=== PATIENT | female | born 1980 | race Caucasian/White ===

== ENCOUNTER 2019-08-20 16:48 | Outpatient (CLI) | payer SELFPAY ==
[~2019-08-20] VITALS: Ht 162.6 cm; Wt 102.4 kg
[~2019-08-20 16:48] MED LIST: ACHD5005 PO; DOCU100C37 PO; FERR325T18 PO; IBUP-1773 PO
--- NOTE | 2019-08-20 16:55 | NUR ---
ZOFIA PADRON presented to unit via from ED, accompanied by SMALL CHILD, with c/o CRAMPING, R SIDED PAIN. ZOFIA PADRON weighed, gowned, voided, and to bed. EFHM and TOCO applied, VS taken. ZOFIA PADRON oriented to bed controls, call light, TV, heat, and A/C controls.
--- NOTE | 2019-08-20 17:20 | NUR ---
DR DAVIS NOTIFIED OF PATIENT STATUS, C/O AND INITIAL ASSESSMENT, VITALS. NEW ORDERS RECEIVED.
[2019-08-20 17:22] VITALS: BP 118/83
[2019-08-20] MEDS ORDERED: D5 LR IV SOLUTION 1,000 ML IV ONE (17:25)
[2019-08-20] MEDS ORDERED: D5 LR IV SOLUTION 1,000 ML IV SCH (17:30)
[2019-08-20 17:50] VITALS: BP 107/68
[2019-08-20 18:28] LABS: BASOPHILS % (AUTO) 0 % (0-10); EOSINOPHILS # (AUTO) 0.1 10^3/uL (0.0-0.3); EOSINOPHILS % (AUTO) 1 % (0-10); HEMATOCRIT 31 % (35-52); HEMOGLOBIN 9.7 G/DL (11.5-16.0); LYMPHOCYTES # (AUTO) 1.7 X 10^3 (1.0-4.0); LYMPHOCYTES % (AUTO) 15 % (12-44); MEAN CORPUSCULAR HEMOGLOBIN 27 PG (25-34); MEAN CORPUSCULAR HGB CONC 31 G/DL (32-36); MEAN CORPUSCULAR VOLUME 87 FL (80-99); MEAN PLATELET VOLUME 10.7 FL (7.4-10.4); MONOCYTES # (AUTO) 0.6 X 10^3 (0.0-1.0); MONOCYTES % (AUTO) 6 % (0-12); NEUTROPHILS # (AUTO) 8.7 X 10^3 (1.8-7.8); NEUTROPHILS % (AUTO) 79 % (42-75); PLATELET COUNT 255 10^3/uL (130-400); RED CELL DISTRIBUTION WIDTH 14.1 % (10.0-14.5)
[2019-08-20 18:31] LABS: BILIRUBIN,URINE NEGATIVE (NEGATIVE); CLARITY,URINE CLEAR; COLOR,URINE YELLOW; GLUCOSE, URINE (UA) NEGATIVE (NEGATIVE); KETONES,URINE 1+ (NEGATIVE); LEUKOCYTE ESTERASE ,URINE NEGATIVE (NEGATIVE); NITRITE,URINE NEGATIVE (NEGATIVE); PROTEIN,URINE NEGATIVE (NEGATIVE)
[2019-08-20 18:42] LABS: BACTERIA,URINE NEGATIVE /HPF; RENAL EPITHELIAL CELLS,URINE 0-2 /HPF
[2019-08-20 18:50] LABS: ALANINE AMINOTRANSFERASE 17 U/L (0-55); ALKALINE PHOSPHATASE 143 U/L (40-136); BILIRUBIN,TOTAL 0.2 MG/DL (0.1-1.0); BUN/CREATININE RATIO 9; CALCIUM 8.9 MG/DL (8.5-10.1); CARBON DIOXIDE 22 MMOL/L (21-32); CHLORIDE 105 MMOL/L (98-107); CREATININE SERUM 0.69 MG/DL (0.60-1.30); GFR ESTIMATED > 60; GLUCOSE 130 MG/DL (70-105); POTASSIUM 3.4 MMOL/L (3.6-5.0); SODIUM 136 MMOL/L (135-145); TOTAL PROTEIN 6.4 GM/DL (6.4-8.2)
[2019-08-20 19:15] VITALS: BP 115/74
--- NOTE | 2019-08-20 19:22 | NUR ---
notified of lab results, current vs, low back rating 2/10 from previous 03/17, no ctx noted. Orders for d/c once fluids are completed.
[2019-08-20] MEDS ORDERED: PREN-53 PO (19:28)
--- NOTE | 2019-08-20 19:40 | NUR ---
Discharge packet given and explained, understanding voiced. Urged to keep f/u appt with primary care physician.
--- NOTE | 2019-08-20 19:49 | NUR ---
Pt ambulatory off unit at this time accompanied by s/o and friend. No ss distress noted.
--- NOTE | 2019-08-23 08:15 | Physician Query-Final Dx ---
SANTHOSH FRANCO 08/23/19 0815: Clinic Account Progress/Dx Physician Query: Please give diagnosis Please include # weeks gestation Date of Service Aug 20, 2019 at 16:48 KENTON DAVIS MD 08/24/19 0801: Clinic Account Progress/Dx DIAGNOSIS: Diagnosis False labor at 32 weeks gestation SANTHOSH FRANCO Aug 23, 2019 08:15 KENTON RICO MD Aug 24, 2019 08:01 POS
== END 2019-08-20 19:49 | disposition home or self-care (01) ==
LOC: WSo 16:48 → LDRP 16:50 → WSo 19:49
PROVIDERS: ATTEND Obstetrics & Gynecology
DX: O26.899 Other specified pregnancy related conditions, unspecified trimester (principal); R10.9 Unspecified abdominal pain; Z3A.00 Weeks of gestation of pregnancy not specified
CPT/HCPCS: 36415; 80053; 81000; 82570; 83615; 84156; 84550; 85025

== ENCOUNTER 2019-09-27 05:48 | Outpatient (CLI) | payer SELFPAY ==
[~2019-09-27] VITALS: Ht 162.6 cm; Wt 105.5 kg
[~2019-09-27 05:48] MED LIST changes: +PREN-53 PO
== END 2019-09-27 12:03 | disposition home or self-care (01) ==
LOC: PREOP 05:48
PROVIDERS: ATTEND Obstetrics & Gynecology
DX: Z01.818 Encounter for other preprocedural examination (principal)

== ENCOUNTER 2019-10-04 03:12 | Inpatient (IN) | payer SELFPAY ==
[~2019-10-04] VITALS: Ht 162.6 cm; Wt 105.5 kg
[2019-10-04] VITALS (14 sets, daily range): BP systolic 101–145; BP diastolic 56–82
--- NOTE | 2019-10-04 03:17 | NUR ---
ZOFIA PADRON presented to unit via AMBULATION from ED, accompanied by SO, with c/o CONTRACTIONS, r c/s sched for 1300. ZOFIA PADRON weighed, gowned, voided, and to bed. EFHM and TOCO applied, VS taken. ZOFIA PADRON oriented to bed controls, call light, TV, heat, and A/C controls.
[2019-10-04] MEDS ORDERED: ceFAZolin 2 GM/50 ML NS 50 ML IV ONE (03:30)
[2019-10-04] MEDS ORDERED: TERBUTALINE INJ 1 MG/ML (BRETHINE) AMP ONE (03:34)
[2019-10-04] MEDS ORDERED: LACTATED RINGERS 1,000 ML IV PRN ×2 (03:42)
[2019-10-04] MEDS ORDERED: FAMOTIDINE 20MG/2ML IV (PEPCID) IV ONE (03:45)
[2019-10-04] MEDS ORDERED: TERBUTALINE INJ 1 MG/ML (BRETHINE) AMP SC ONE (03:45)
[2019-10-04] MEDS ORDERED: METOCLOPRAMIDE INJ 10 MG/2 ML (REGLAN) IV ONE (03:45)
[2019-10-04] MEDS ORDERED: CITRIC ACID/SOB CIT (BICITRA) 30 ML UDC PO ONE (03:45)
[2019-10-04] MEDS ORDERED: fentaNYL INJECTION 100 MCG/2 ML AMP ONE (04:16)
[2019-10-04 04:18] LABS: BASOPHILS % (AUTO) 0 % (0-10); EOSINOPHILS # (AUTO) 0.1 10^3/uL (0.0-0.3); EOSINOPHILS % (AUTO) 1 % (0-10); HEMATOCRIT 33 % (35-52); HEMOGLOBIN 10.3 G/DL (11.5-16.0); LYMPHOCYTES # (AUTO) 3.2 X 10^3 (1.0-4.0); LYMPHOCYTES % (AUTO) 35 % (12-44); MEAN CORPUSCULAR HEMOGLOBIN 26 PG (25-34); MEAN CORPUSCULAR HGB CONC 32 G/DL (32-36); MEAN CORPUSCULAR VOLUME 81 FL (80-99); MEAN PLATELET VOLUME 10.9 FL (7.4-10.4); MONOCYTES # (AUTO) 0.7 X 10^3 (0.0-1.0); MONOCYTES % (AUTO) 8 % (0-12); NEUTROPHILS # (AUTO) 5.3 X 10^3 (1.8-7.8); NEUTROPHILS % (AUTO) 57 % (42-75); PLATELET COUNT 265 10^3/uL (130-400); RED CELL DISTRIBUTION WIDTH 15.7 % (10.0-14.5); WHITE BLOOD COUNT 9.2 10^3/uL (4.3-11.0)
[2019-10-04] MEDS ORDERED: KETAMINE/NaCl 50 MG/5 ML SYRINGE (ED ONLY) ONE (04:23)
[2019-10-04] MEDS ORDERED: OXYTOCIN PRE-MIX DRIP 1,000 ML IV ONE (04:24)
--- NOTE | 2019-10-04 04:29 | NUR ---
Called Dr. Suarez to make sure he was on his way as surgery crew is waiting, states will be here in approx 5 min. No new orders rc'd.
--- NOTE | 2019-10-04 04:50 | History & Physical-OB/GYN ---
History of Present Illness History of Present Illness Reason for visit/HPI Ms. Campos was admitted for the onset of contractions at 39 weeks gestation--she was scheduled for a Repeat today. Date of Admission Oct 04, 2019 at 03:12 Date Seen by a Provider: Oct 04, 2019 Time Seen by a Provider: 04:30 I consulted on this patient on 10/04/19 04:44 Attending Physician Joshua Suarez DO Admitting Physician Joshua Suarez DO Consult Allergies and Home Medications Allergies Coded Allergies: No Known Allergies (Verified Allergy, Unknown, 06/13/06) Home Medications No Active Prescriptions or Reported Meds Patient Home Medication List Home Medication List Reviewed: Yes Past Zwyusox-Crsoew-Xfdbdi Hx Patient Social History Marrital Status: Number of Children: 2 Number of living children: 2 Employed/Student: employed Alcohol Use: Denies Use Recreational Drug Use: No Smoking Status: Never a Smoker 2nd Hand Smoke Exposure: No Physical Abuse Screen: No Sexual Abuse: No Recent Foreign Travel: No Contact w/other who traveled: No Recent Hopitalizations: No Recent Infectious Disease Expo: No Immunizations Up To Date Tetanus Booster (TDap): Unknown Pediatric: Yes Seasonal Allergies Seasonal Allergies: No Surgeries Yes Respiratory No Cardiovascular No Neurological No Reproductive System Expected Date of Delivery: Oct 09, 2019 Hx Reproductive Disorders: No Genitourinary No Gastrointestinal No Musculoskeletal No Endocrine History of Endocrine Disorders: No HEENT History of HEENT Disorders: No Cancer No Psychosocial History of Psychiatric Problem: No Integumentary History of Skin or Integumenta: No Blood Transfusions History of Blood Disorders: No Adverse Reaction to a Blood Tr: No Family Medical History Family Hx: Patient reports no known family medical history. Review of Systems Constitutional: see HPI Physical Exam Physical Exam Vital Signs I & O 10/04/19 07:00 Intake Total 1000 ml Balance 1000 ml Capillary Refill : Labs Laboratory Tests 10/04/19 04:05: White Blood Count 9.2, Red Blood Count 4.01L, Hemoglobin 10.3L, Hematocrit 33L, Mean Corpuscular Volume 81, Mean Corpuscular Hemoglobin 26, Mean Corpuscular Hemoglobin Concent 32, Red Cell Distribution Width 15.7H, Platelet Count 265, Mean Platelet Volume 10.9H, Neutrophils (%) (Auto) 57, Lymphocytes (%) (Auto) 35, Monocytes (%) (Auto) 8, Eosinophils (%) (Auto) 1, Basophils (%) (Auto) 0, Neutrophils # (Auto) 5.3, Lymphocytes # (Auto) 3.2, Monocytes # (Auto) 0.7, Eosinophils # (Auto) 0.1, Basophils # (Auto) 0.0 General Appearance: No Apparent Distress, WD/WN Respiratory: Chest Non Tender, Lungs Clear, Normal Breath Sounds Cardiovascular: Regular Rate, Rhythm, No Murmur Abdominal: normal bowel sounds, non tender Pelvic Exam: normal external exam, normal adnexa, no cerv. motion tender Extremity: Normal Inspection, No Calf Tenderness Assessment/Plan Assessment and Plan Intrauterine at 39 2/7 weeks--onset of labor 2. Previous Plan: Proceed with an immediate Repeat . Procedure and its associated risks were reviewed. All questions were answered. Admission Diagnosis Admission Status: Inpatient Order (span 2 midnights) Reason for Inpatient Admission: Intrauterine at 39 2/7 weeks--onset of labor 2. Previous Clinical Quality Measures DVT/VTE Risk/Contraindication: Risk Factor Score Per Nursin RFS Level Per Nursing on Admit: 2=Moderate JOSHUA SUAREZ DO Oct 04, 2019 04:49
[2019-10-04] MEDS ORDERED: KETOROLAC 30 MG/ML VIAL ONE (05:16)
[2019-10-04] MEDS: KETOROLAC 30 MG/ML VIAL IV SCH ×3 (05:20→18:10)
[2019-10-04] MEDS ORDERED: BUPIVACAINE 0.5% 30 ML (SENSORCAINE) VIAL ONE (05:55)
[2019-10-04] MEDS ORDERED: OXYTOCIN PRE-MIX DRIP 500 ML IV SCH (05:57)
[2019-10-04] MEDS ORDERED: CATHETER FLUSH 10 ML SYR IV SCH (06:00)
[2019-10-04] MEDS ORDERED: ONDANSETRON 4 MG/2 ML (SDV) Z0FRAN IVP PRN (06:00)
[2019-10-04] MEDS ORDERED: fentaNYL INJECTION 100 MCG/2 ML AMP IVP PRN (06:00)
[2019-10-04] MEDS ORDERED: TETANUS,DIPTH,PERTUSS P/F (BOOSTRIX) 0.5 ML VIAL IM SCH (06:00)
[2019-10-04] MEDS ORDERED: MEASLES,MUMPS,RUBELLA 1 EA INJ SC SCH (06:00)
--- NOTE | 2019-10-04 06:08 | Cesarean Section Operative ---
Procedure Procedure Note Pre-operative Diagnosis: Coleman chahal (39 /Para / ,Gestational Age (wks)39 with [] Post-operative Diagnosis: Intrauterine at 39 2/7 2. Previous C- Section 3. Advanced Maternal Age Procedure: [Repeat] low transverse section Physician: GÓMEZ CRUZ Palletiser Operator: [None] Estimated blood loss: [500] mL Disposition: [Stable to Recovery Room] Findings: Viable [Male] infant, Apgars [], weight [], intact placenta, 3vc, normal appearing uterus, tubes, and ovaries. Indications:Coleman chahal (39 /Para 3 /2 ,Gestational Age (wks)39 presenting for [onset of labor]. Procedure Details: The patient was seen in pre-op and the procedure was discussed with the patient in full, including the risks, benefits, and alternatives. All questions were a nswered. The patient was taken to the operating room and a time out was performed, verifying patient and procedure. After spinal anesthesia was placed by our anesthesia colleagues, the patient was placed in the dorsal supine with leftward tilt for uterine displacement.~ Her abdomen was then prepped and draped in the typical sterile fashion. An elliptical skin incision was made using a scalpel. previous skin scar was removed and sent to pathology and the incision carried down through the underlying fascia. The fascia was incised in the midline and tented up using Vero clamps. On both the inferior and superior fascia side the rectus muscle was dissected off bluntly and sharply using Strong scissors. The peritoneum was identified and entered bluntly in the midline. This was then stretched laterally using manual strength. After entering the abdominal cavity and confirming lack of intraperitoneal adhesions, a large Randell retractor was placed and the lower uterine segment was visualized. A bladder flap was created with the use of Metzenbaum scissors.~ A scalpel was utilized to make a low transverse uterine incision. Amniotomy was performed with an Allis clamp with return of clear fluid. The 's head was grasped and brought to the level of the incision. Fundal pressure was applied and infant was delivered without difficulty. Mouth and nares were suctioned with bulb suction. After the umbilical cord was clamped and cut, the was handed off to the pediatric staff. A sample of cord blood was then obtained. The placenta was delivered intact via uterine massage. The uterus was exteriorized and cleared of all clots and debris. The uterine incision was closed using 0 Vicryl in a running locked fashion. A second imbricated layer was placed using 0 Vicryl in a running fashion as well. The uterus was flexed forward and the posterior rectouterine space was inspected and cleared of all clots and debris. Again the hysterotomy site was examined and hemostasis was observed. The bilateral tubes and ovaries appeared normal. The uterus was placed back into the abdominal cavity and abdominal gutters were cleared of all clots and debris. A final check of the uterine incision showed it to be hemostatic. The peritoneum was closed using 3-0 Vicryl in a running fashion. The fascia was closed with 0 Vicryl in a running fashion. The subcutaneous space was hemostatic, and irrigated. The subcutaneous space was closed with 3-0 Plain Gu in several single interrupted stitches. The skin was then closed using 4-0 Monocryl in a running subcuticular fashion. The skin edges were reapproximated together and were hemostatic. A pressure dressing was applied. All sponge, lap and needle counts were correct at the end of the procedure per nursing. Vitals - Labs Vital Signs - I&O Vital Signs Date Time Temp Pulse Resp B/P (MAP) Pulse Ox O2 Delivery O2 Flow Rate FiO2 10/04/19 04:33 85 18 123/69 (87) Room Air 10/04/19 03:31 36.7 89 18 100 Room Air I & O 10/04/19 07:00 Intake Total 1050 ml Balance 1050 ml Labs Laboratory Tests 10/04/19 04:05: White Blood Count 9.2, Red Blood Count 4.01L, Hemoglobin 10.3L, Hematocrit 33L, Mean Corpuscular Volume 81, Mean Corpuscular Hemoglobin 26, Mean Corpuscular Hemoglobin Concent 32, Red Cell Distribution Width 15.7H, Platelet Count 265, Mean Platelet Volume 10.9H, Neutrophils (%) (Auto) 57, Lymphocytes (%) (Auto) 35, Monocytes (%) (Auto) 8, Eosinophils (%) (Auto) 1, Basophils (%) (Auto) 0, Neutrophils # (Auto) 5.3, Lymphocytes # (Auto) 3.2, Monocytes # (Auto) 0.7, Eosinophils # (Auto) 0.1, Basophils # (Auto) 0.0 GÓMEZ CRUZ DO Oct 04, 2019 06:08
[2019-10-04] MEDS ORDERED: PHENYLEPHRINE 100 MCG/ML 10 ML (ANESTHESIA) SYR ONE (06:17)
[2019-10-04] MEDS ORDERED: ACETAMINOPHEN 500 MG TAB (TYLENOL) ONE (06:21)
[2019-10-04] MEDS ORDERED: METOCLOPRAMIDE 10 MG (REGLAN) TAB ONE (06:22)
--- NOTE | 2019-10-04 06:50 | NUR ---
Pt. to rm 307 via bed from recovery following r c/s. Oriented to rm, call light given, POC reviewed, pt. verbalized understanding. Report rc'd from Michelle Veronica RN.
[2019-10-04] MEDS ORDERED: OXYTOCIN PRE-MIX DRIP 500 ML IV ONE (06:53)
[2019-10-04] MEDS: METOCLOPRAMIDE 10 MG (REGLAN) TAB PO SCH ×2 (07:01→12:10)
[2019-10-04] MEDS: ACETAMINOPHEN 500 MG TAB (TYLENOL) PO SCH ×3 (07:02→21:57)
[2019-10-04] MEDS: DOCUSATE SODIUM 100 MG (COLACE) CAP PO SCH ×2 (09:24→21:57)
--- NOTE | 2019-10-04 10:57 | NUR ---
Dr. Suarez called, notified of decreased urine output, request for IV fluids after pitocin infusion. Order rec'd for NS 500ml bolus, then 125ml/hr. Beckett catheter order clarified at this time as well, may take out this evening or tomorrow AM.
[2019-10-04] MEDS ORDERED: NS IV 1000 ML 1,000 ML ONE (10:58)
[2019-10-04] MEDS: NS IV 1000 ML 1,000 ML IV SCH ×4 (11:04→23:15)
--- NOTE | 2019-10-04 14:34 | NUR ---
Dr Suarez called d/t continued low output, VM left.
--- NOTE | 2019-10-04 15:23 | NUR ---
Dr Suarez called again as he had not returned first call. notified of continued concentrated, decreased output. Order to increase fluids to 250ml/hr.
--- NOTE | 2019-10-04 18:27 | NUR ---
Dr Suarez called and notified of total output of 175ml for the day. Order rec'd to continue fluids at 250ml/hr and keep nicolas in place until morning for accurate I&O
[2019-10-05] MEDS: KETOROLAC 30 MG/ML VIAL IV SCH
[2019-10-05 00:01] VITALS: BP 120/66
[2019-10-05] MEDS: ACETAMINOPHEN 500 MG TAB (TYLENOL) PO SCH ×2 (03:11→11:59)
[2019-10-05] MEDS: NS IV 1000 ML 1,000 ML IV SCH (03:11)
[2019-10-05] MEDS ORDERED: BISACODYL 10 MG SUPP (DULCOLAX) PR ONE (05:00)
[2019-10-05] MEDS ORDERED: MILK OF MAGNESIA 400 MG/5 ML 30 ML UDC PO ONE (05:00)
[2019-10-05 05:09] VITALS: BP 112/80
[2019-10-05] MEDS: METOCLOPRAMIDE 10 MG (REGLAN) TAB PO SCH (05:09)
[2019-10-05] MEDS ORDERED: ACET-93 PO (06:20)
[2019-10-05] MEDS ORDERED: IBUP-1780 PO (06:20)
[2019-10-05] MEDS ORDERED: DOCU-244 PO (06:20)
[2019-10-05] MEDS ORDERED: OXC5T PO (06:20)
--- NOTE | 2019-10-05 06:28 | Discharge Summary ---
Diagnosis/Chief Complaint Date of Admission Oct 04, 2019 at 03:12 Date of Discharge October 05, 2019 Discharge Date: Oct 05, 2019 Discharge Time: 15:00 Admission Diagnosis Admission Diagnosis Intrauterine at 39 2/7 weeks 2. Previous 3. Advanced Maternal Age Discharge Diagnosis Intrauterine at 39 2/7 weeks--delivered 2. Previous 3. Advanced Maternal Age Reason Hospital Visit Ms. Campos was admitted for the onset of contractions at 39 weeks gestation--she was scheduled for a Repeat today. Discharge Summary Hospital Course Was the Problem List Reviewed?: Yes Hospital Course Ms. Campos, 39 year old female was admitted with the onset of contractions and found to have advanced dilation (4 cm). She was a scheduled for the day of admission. The surgery was performed seemingly without complications. On her day of surgery, she was placed on IV pain medication and other comfort measures. Ms. Campos had decreased urinary output despite increased fluid load. However, over the course of the night, she was without complaint. This morning, she states that she is only a little sore, would like to have her catheter removed. We will remove her catheter, increase her bowel function, start her on oral pain medications, and if her vital signs remain stable, I will discharge her to home with instructions, prescriptions and a follow up appointment. Labs Laboratory Tests 10/04/19 04:05: Red Blood Count 4.01L, Hemoglobin 10.3L, Hematocrit 33L, Red Cell Distribution Width 15.7H, Mean Platelet Volume 10.9H Procedures None. Discharge Physical Examination Allergies: Coded Allergies: No Known Allergies (Verified Allergy, Unknown, 06/13/06) Vitals & I&Os Vital Signs Date Time Temp Pulse Resp B/P (MAP) Pulse Ox O2 Delivery O2 Flow Rate FiO2 10/05/19 05:09 37.0 68 18 112/80 (91) 98 Room Air General Appearance: Alert, Oriented X3, Cooperative HEENT: Atraumatic, PERRLA Respiratory: Clear to Auscultation Cardiovascular: Regular Rate, No Murmurs Abdominal: Normal Bowel Sounds Extremities: No Clubbing, No Cyanosis Skin: No Rashes Neuro: Normal Gait, Normal Speech Psych/Mental Status: Mental Status NL Discharge Home Medications Reviewed and agree with Discharge Medication list on patient's Discharge Instruction sheet Instructions to Patient/Family Please see electronic discharge instructions given to patient. Clinical Quality Measures DVT/VTE Risk/Contraindication: Risk Factor Score Per Nursin RFS Level Per Nursing on Admit: 2=Moderate GÓMEZ CRUZ DO Oct 05, 2019 06:28
[2019-10-05 07:06] LABS: BASOPHILS % (AUTO) 0 % (0-10); EOSINOPHILS % (AUTO) 1 % (0-10); HEMATOCRIT 28 % (35-52); HEMOGLOBIN 8.7 G/DL (11.5-16.0); LYMPHOCYTES # (AUTO) 1.8 X 10^3 (1.0-4.0); LYMPHOCYTES % (AUTO) 22 % (12-44); MEAN CORPUSCULAR HEMOGLOBIN 26 PG (25-34); MEAN CORPUSCULAR HGB CONC 31 G/DL (32-36); MEAN CORPUSCULAR VOLUME 84 FL (80-99); MEAN PLATELET VOLUME 11.1 FL (7.4-10.4); MONOCYTES # (AUTO) 0.6 X 10^3 (0.0-1.0); MONOCYTES % (AUTO) 7 % (0-12); NEUTROPHILS # (AUTO) 5.7 X 10^3 (1.8-7.8); NEUTROPHILS % (AUTO) 70 % (42-75); PLATELET COUNT 209 10^3/uL (130-400); WHITE BLOOD COUNT 8.1 10^3/uL (4.3-11.0)
--- NOTE | 2019-10-05 07:15 | NUR ---
Pt reports she had a small, loose BM this AM. Will change diet to regular.
--- NOTE | 2019-10-05 07:46 | Anesthesia-Regional Post-Op ---
Regional Patient Condition Mental Status: Alert, Oriented x3 Circulation: Same as Pre-Op Headache: Absent Sensation: Full Recovery Motor Block: Absent Post Op Complications Complications None Follow Up Care/Instructions Patient Instructions None needed. Anesthesia/Patient Condition Patient is doing well, no complaints, stable vital signs, no apparent adverse anesthesia problems. No complications reported per nursing. GILA HELMS CRNA Oct 05, 2019 07:46
[2019-10-05 08:00] VITALS: BP 128/65
[2019-10-05] MEDS ORDERED: IBUPROFEN 800 MG (MOTRIN) TAB PO SCH (12:00)
[2019-10-05 12:30] VITALS: BP 121/78
--- NOTE | 2019-10-05 15:52 | NUR ---
Discharge instructions explained to pt with copy provided to pt along with prescriptions. Pt verbalizes understanding of instructions and signs to verify. Pt notified of follow up appts made. No questions or concerns voiced at this time. Cart provided to take belongings to vehicle
--- NOTE | 2019-10-05 17:15 | NUR ---
Pt wheeled off unit to private vehicle accompanied by S.O., , and staff member. All personal belongings with pt. No s/s of distress noted.
== END 2019-10-05 17:15 | disposition home or self-care (01) | DRG 788 ==
LOC: LDRP 03:12
PROVIDERS: ADMIT Obstetrics & Gynecology; ATTEND Obstetrics & Gynecology
PROC: 10D00Z1 Extraction of Products of Conception, Low, Open Approach (ICD-10-PCS; principal; 2019-10-04 04:44)
DX: O34.211 Maternal care for low transverse scar from previous cesarean delivery (principal); Z37.0 Single live birth; Z3A.39 39 weeks gestation of pregnancy
CPT/HCPCS: 36415; 85025; 86850; 86900; 86901; 87081; 94664; 99212

== ENCOUNTER 2019-10-26 02:01 | Emergency (ER) | payer OTHER ==
[~2019-10-26] VITALS: Ht 162 cm; Wt 96.6 kg
[~2019-10-26 02:01] MED LIST changes: +ACET-93 PO; +DOCU-244 PO; +IBUP-1780 PO; +OXC5T PO
[2019-10-26] MEDS ORDERED: LACTATED RINGERS 1,000 ML IV ONE (02:22)
[2019-10-26] MEDS ORDERED: KETOROLAC 30 MG/ML VIAL IVP STA (02:22)
[2019-10-26] MEDS ORDERED: fentaNYL INJECTION 100 MCG/2 ML AMP IVP STA (02:22)
[2019-10-26] MEDS ORDERED: ONDANSETRON 4 MG/2 ML (SDV) Z0FRAN IVP ONE (02:30)
[2019-10-26 02:41] LABS: BASOPHILS % (AUTO) 0 % (0-10); EOSINOPHILS # (AUTO) 0.1 10^3/uL (0.0-0.3); EOSINOPHILS % (AUTO) 2 % (0-10); HEMATOCRIT 36 % (35-52); HEMOGLOBIN 10.8 G/DL (11.5-16.0); LYMPHOCYTES # (AUTO) 2.2 X 10^3 (1.0-4.0); LYMPHOCYTES % (AUTO) 30 % (12-44); MEAN CORPUSCULAR HEMOGLOBIN 25 PG (25-34); MEAN CORPUSCULAR HGB CONC 30 G/DL (32-36); MEAN CORPUSCULAR VOLUME 83 FL (80-99); MEAN PLATELET VOLUME 10.2 FL (7.4-10.4); MONOCYTES # (AUTO) 0.5 X 10^3 (0.0-1.0); MONOCYTES % (AUTO) 7 % (0-12); NEUTROPHILS # (AUTO) 4.5 X 10^3 (1.8-7.8); NEUTROPHILS % (AUTO) 61 % (42-75); PLATELET COUNT 324 10^3/uL (130-400); RED CELL DISTRIBUTION WIDTH 16.9 % (10.0-14.5); WHITE BLOOD COUNT 7.3 10^3/uL (4.3-11.0)
--- NOTE | 2019-10-26 02:42 | ED Abdominal Pain ---
General Chief Complaint: Back Problems Stated Complaint: TIGHT CHEST, MIDDLE BACK,KIDNEY & STOMACH PAIN Source of Information: Patient Exam Limitations: No Limitations History of Present Illness Date Seen by Provider: Oct 26, 2019 Time Seen by Provider: 02:27 Initial Comments Here with report of left-sided abdominal pain and flank pain that radiates to the back and chest as well as down to the groin. Onset earlier this evening. Has some nausea and one episode of vomiting tonight. Denies dysuria. Had delivery on 10/04/19 and has been doing fine since. Noted lochia flow had pretty much stopped. Now has a little bit of bloody discharge. She denies its foul- smelling. Denies fever or chills. Timing/Duration: 12 Hours Severity/Quality: Moderate, Aching, Cramping Location: LUQ, Flank Radiation: LUQ, Back, Chest Activities at Onset: None Modifying Factors: Improves With Resting Associated Symptoms: No Fever/Chills; Nausea/Vomiting; No Shortness of Air, No Weakness Allergies and Home Medications Allergies Coded Allergies: No Known Allergies (Verified Allergy, Unknown, 06/13/06) Home Medications Acetaminophen 500 Mg Tablet, 1,000 MG PO Q6HR Prescribed by: GÓMEZ CRUZ on 10/05/19619 Docusate Sodium 100 Mg Capsule, 100 MG PO BID Prescribed by: GÓMEZ CRUZ on 10/05/19619 Ibuprofen 800 Mg Tablet, 800 MG PO Q8H Prescribed by: GÓMEZ CRUZ on 10/05/19619 Oxycodone Hcl 5 Mg Tab, 5 MG PO Q4HR PRN for To achieve TAG Prescribed by: GÓMEZ CRUZ on 10/05/19619 Patient Home Medication List Home Medication List Reviewed: Yes Review of Systems Review of Systems Constitutional: see HPI; No chills, No fever EENTM: No Symptoms Reported Respiratory: No Symptoms Reported Cardiovascular: No Symptoms Reported Gastrointestinal: Abdominal Pain; Denies Diarrhea; Nausea, Vomiting Genitourinary: See HPI, Discharge, Flank Pain Musculoskeletal: no symptoms reported Skin: no symptoms reported Psychiatric/Neurological: No Symptoms Reported All Other Systems Reviewed Negative Unless Noted: Yes Past Bjyodcb-Dqgynd-Rzaoqe Hx Past Med/Social Hx: Reviewed Nursing Past Med/Soc Hx Patient Social History Alcohol Use: Denies Use Recreational Drug Use: No Smoking Status: Never a Smoker 2nd Hand Smoke Exposure: No Recent Foreign Travel: No Contact w/Someone Who Travel: No Recent Hopitalizations: No Immunizations Up To Date Tetanus Booster (TDap): Unknown PED Vaccines UTD: Yes Seasonal Allergies Seasonal Allergies: No Past Medical History Surgeries: Yes Section Respiratory: No Cardiac: No Neurological: No Reproductive Disorders: No Genitourinary: No Gastrointestinal: No Musculoskeletal: No Endocrine: No HEENT: No Cancer: No Psychosocial: No Integumentary: No Blood Disorders: No Adverse Reaction/Blood Tranf: No Family Medical History Reviewed Nursing Family Hx (process and a minute) Patient reports no known family medical history. Physical Exam Vital Signs Vital Signs - First Documented 10/26/19 02:12 Temp 36.4 Pulse 80 Resp 20 B/P (MAP) 128/81 (97) Pulse Ox 99 O2 Delivery Room Air Capillary Refill : Height/Weight/BMI Height: 5'4.00" Weight: 234lbs. 0.0oz. [id number]; 39.90 BMI Method: General Appearance: WD/WN, no apparent distress Respiratory: lungs clear, normal breath sounds Cardiovascular: regular rate, rhythm, no murmur Gastrointestinal: soft, tenderness (lower and left-sided) Extremities: non-tender, normal inspection Back: No CVA tenderness (R); CVA tenderness (L) Neurologic/Psychiatric: alert, oriented x 3 Skin: normal color, warm/dry Progress/Results/Core Measures Results/Orders Lab Results Laboratory Tests Test 10/26/19 02:25 10/26/19 02:59 Range/Units White Blood Count 7.3 4.3-11.0 10^3/uL Red Blood Count 4.31 L 4.35-5.85 10^6/uL Hemoglobin 10.8 L 11.5-16.0 G/DL Hematocrit 36 35-52 % Mean Corpuscular Volume 83 80-99 FL Mean Corpuscular Hemoglobin 25 25-34 PG Mean Corpuscular Hemoglobin Concent 30 L 32-36 G/DL Red Cell Distribution Width 16.9 H 10.0-14.5 % Platelet Count 324 130-400 10^3/uL Mean Platelet Volume 10.2 7.4-10.4 FL Neutrophils (%) (Auto) 61 42-75 % Lymphocytes (%) (Auto) 30 12-44 % Monocytes (%) (Auto) 7 0-12 % Eosinophils (%) (Auto) 2 0-10 % Basophils (%) (Auto) 0 0-10 % Neutrophils # (Auto) 4.5 1.8-7.8 X 10^3 Lymphocytes # (Auto) 2.2 1.0-4.0 X 10^3 Monocytes # (Auto) 0.5 0.0-1.0 X 10^3 Eosinophils # (Auto) 0.1 0.0-0.3 10^3/uL Basophils # (Auto) 0.0 0.0-0.1 10^3/uL Sodium Level 141 135-145 MMOL/L Potassium Level 3.4 L 3.6-5.0 MMOL/L Chloride Level 104 98-107 MMOL/L Carbon Dioxide Level 25 21-32 MMOL/L Anion Gap 12 5-14 MMOL/L Blood Urea Nitrogen 11 7-18 MG/DL Creatinine 0.80 0.60-1.30 MG/DL Estimat Glomerular Filtration Rate > 60 BUN/Creatinine Ratio 14 Glucose Level 109 H 70-105 MG/DL Calcium Level 9.2 8.5-10.1 MG/DL Corrected Calcium 9.3 8.5-10.1 MG/DL Total Bilirubin 0.5 0.1-1.0 MG/DL Aspartate Amino Transf (AST/SGOT) 35 H 5-34 U/L Alanine Aminotransferase (ALT/SGPT) 26 0-55 U/L Alkaline Phosphatase 105 40-136 U/L C-Reactive Protein High Sensitivity 0.43 0.00-0.50 MG/DL Total Protein 7.5 6.4-8.2 GM/DL Albumin 3.9 3.2-4.5 GM/DL Lipase 37 8-78 U/L Urine Color YELLOW Urine Clarity CLEAR Urine pH 7.5 5-9 Urine Specific [place] 1.015 L 1.016-1.022 Urine Protein NEGATIVE NEGATIVE Urine Glucose (UA) NEGATIVE NEGATIVE Urine Ketones NEGATIVE NEGATIVE Urine Nitrite NEGATIVE NEGATIVE Urine Bilirubin NEGATIVE NEGATIVE Urine Urobilinogen 0.2 < = 1.0 MG/DL Urine Leukocyte Esterase NEGATIVE NEGATIVE Urine RBC (Auto) 1+ H NEGATIVE Urine RBC 5-10 H /HPF Urine WBC NONE /HPF Urine Squamous Epithelial Cells 0-2 /HPF Urine Crystals NONE /LPF Urine Bacteria FEW H /HPF Urine Casts NONE /LPF Urine Mucus NEGATIVE /LPF Urine Culture Indicated NO My Orders Orders - RICCARDO CHENG MD Ua Culture If Indicated (10/26/19 02:13) Cbc With Automated Diff (10/26/19 02:22) Comprehensive Metabolic Panel (10/26/19 02:22) Hs C Reactive Protein (10/26/19 02:22) Ed Iv/Invasive Line Start (10/26/19 02:22) Lactated Ringers (Lr 1000 Ml Iv Solution (10/26/19 02:22) Fentanyl Injection (Sublimaze Injection (10/26/19 02:22) Ketorolac Injection (Toradol Injection) (10/26/19 02:22) Lipase (10/26/19 02:23) Ondansetron Injection (Zofran Injectio (10/26/19 02:30) Ct Abd/Pelvis Wo(Kidney Stone) (10/26/19 03:04) Medications Given in ED Current Medications Medications Dose Ordered Sig/Rene Route Start Time Stop Time Status Last Admin Dose Admin Lactated Ringer's 1,000 ml @ 0 mls/hr Q0M ONCE IV 10/26/19 02:22 10/26/19 02:25 DC 10/26/19 02:49 1,000 MLS/HR Ondansetron HCl 4 mg ONCE ONCE IVP 10/26/19 02:30 10/26/19 02:31 DC 10/26/19 02:49 4 MG Vital Signs/I&O 10/26/19 02:12 Temp 36.4 Pulse 80 Resp 20 B/P (MAP) 128/81 (97) Pulse Ox 99 O2 Delivery Room Air Progress Progress Note : Progress Note Seen and evaluated. IV, labs and UA ordered. LR 1 L bolus. Zofran 4 mg IV, fentanyl 50 g IV and Toradol 30 mg IV ordered. Monitor patient. CT abdomen and pelvis kidney stone protocol ordered. 0500: Pain is resolved essentially. CT and labs do not show any significant abnormalities. Patient does admit to ibuprofen use since . She has not taken the oxycodone for pain. All findings and concerns were discussed with the patient. At this point with improved symptoms and reassuring evaluation, discharge as indicated. Discharged home with return precautions. Patient verbalize understanding instructions and agreement with plan. Diagnostic Imaging Diagonstic Imaging: CT Plain Films/CT/US/NM/MRI: abdomen, pelvis Comments There are left renal parapelvic low density cystic regions, likely benign parapelvic cyst. The largest measures 2.3 cm. There are 2 small nonobstructing stones in the mid and lower kidney measuring approximately 2 mm each. The right kidney is unremarkable. Departure Impression Primary Impression: Abdominal pain, left upper quadrant Disposition: 01 HOME, SELF-CARE Condition: Improved Departure-Patient Inst. Decision time for Depature: 05:05 Referrals: GÓMEZ CRUZ DO (PCP/Family) Primary Care Physician Patient Instructions: Acute Abdomen (Belly Pain) Add. Discharge Instructions: All discharge instructions reviewed with patient and/or family. Voiced understanding. Clear or light diet for the next 24 hours and then advance as tolerated. You may try switching to Tylenol/acetaminophen 1000 mg every 6-8 hours as needed for pain. You may take Pepcid or the generic famotidine, 20 mg once or twice daily for the next 7 days and then once daily thereafter as needed for stomach upset. Follow-up with your doctor for recheck and further evaluation. Return for worse pain, weakness, breathing problems, difficulty with urination or bowel movements, foul-smelling vaginal discharge, fever or other concerns as needed. RICCARDO CHENG MD Oct 26, 2019 02:42
[2019-10-26 03:02] LABS: ALANINE AMINOTRANSFERASE 26 U/L (0-55); ALBUMIN 3.9 GM/DL (3.2-4.5); ALKALINE PHOSPHATASE 105 U/L (40-136); BILIRUBIN,TOTAL 0.5 MG/DL (0.1-1.0); BUN/CREATININE RATIO 14; CALCIUM 9.2 MG/DL (8.5-10.1); CARBON DIOXIDE 25 MMOL/L (21-32); CHLORIDE 104 MMOL/L (98-107); GFR ESTIMATED > 60; GLUCOSE 109 MG/DL (70-105); LIPASE 37 U/L (8-78); POTASSIUM 3.4 MMOL/L (3.6-5.0); SODIUM 141 MMOL/L (135-145); TOTAL PROTEIN 7.5 GM/DL (6.4-8.2)
[2019-10-26 03:07] LABS: BILIRUBIN,URINE NEGATIVE (NEGATIVE); CLARITY,URINE CLEAR; COLOR,URINE YELLOW; GLUCOSE, URINE (UA) NEGATIVE (NEGATIVE); KETONES,URINE NEGATIVE (NEGATIVE); LEUKOCYTE ESTERASE ,URINE NEGATIVE (NEGATIVE); NITRITE,URINE NEGATIVE (NEGATIVE); PH,URINE 7.5 (5-9); PROTEIN,URINE NEGATIVE (NEGATIVE)
[2019-10-26 03:22] LABS: BACTERIA,URINE FEW /HPF; SQUAMOUS EPITHELIAL CELL,UR 0-2 /HPF
[2019-10-26 05:18] VITALS: BP 128/80
--- NOTE | 2019-10-26 06:09 | Diagnostic Imaging Report ---
PROCEDURE: CT urinary tract, rule out kidney stone. TECHNIQUE: Multiple contiguous axial images were obtained through the abdomen and pelvis without the use of intravenous contrast. Auto Exposure Controls were utilized during the CT exam to meet ALARA standards for radiation dose reduction. INDICATION: Bilateral flank pain and burning with urination. No priors. Stones within the left lower pole calyces measured 2 mm maximal. There appears to be some left-sided mid and lower 3rd renal parapelvic cyst formation but no leola hydronephrosis. No perinephric or periureteric edema. No radiodense ureteral stone. The uterus is mildly enlarged, unremarkable given 3 weeks status. No adnexal lesion. There is no appendicitis or diverticulitis. The unopacified liver, spleen, adrenals, pancreas unremarkable. There does appear to be a small stone in the gallbladder, gallbladder otherwise normal. No bile duct dilatation. IMPRESSION: 1. Intrarenal stones in the left kidney with probable mild left-sided renal parapelvic cysts but no leola hydroureteronephrosis or opaque ureteral stone. 2. Normal appendix. No ileus or bowel obstruction. 3. uterus with no evidence for abscess or hemorrhage. 4. Probable cholelithiasis. Dictated by: Dictated on workstation # [id number]
== END 2019-10-26 05:19 | disposition home or self-care (01) ==
LOC: EDUNIT# 02:01 → ER 02:03
DX: R10.12 Left upper quadrant pain (principal)
CPT/HCPCS: 36415; 74176; 80053; 81000; 83690; 85025; 86141